=== PATIENT | male | born 1995 | race Caucasian/White ===

== ENCOUNTER 2024-11-11 18:03 | Emergency (ER) | payer OTHER ==
[~2024-11-11] VITALS: Ht 177.8 cm; Wt 77.1 kg
[2024-11-11] MEDS ORDERED: ONDANSETRON HCL 2 MG/ML VIAL IV ONE (18:45)
[2024-11-11] MEDS ORDERED: hydrOXYzine PAMOATE 25 MG CAPSULE PO ONE ×2 (18:45→19:51)
[2024-11-11] MEDS ORDERED: FAMOTIDINE/PF 20 MG/2 ML VIAL IV ONE (18:45)
[2024-11-11] MEDS ORDERED: ONDANSETRON HCL 2 MG/ML VIAL ONE (19:52)
[2024-11-11] MEDS ORDERED: FAMOTIDINE/PF 20 MG/2 ML VIAL ONE (19:52)
== END 2024-11-11 21:59 | disposition left against medical advice (07) ==
LOC: ER 18:04
DX: R53.81 Other malaise (principal); R53.1 Weakness; R51.9 Headache, unspecified; R11.2 Nausea with vomiting, unspecified; Z88.6 Allergy status to analgesic agent